=== PATIENT | female | born 1955 | race Caucasian/White ===

== ENCOUNTER 2021-08-11 09:11 | Outpatient (CLI) | payer MEDICARE | END 2021-08-11 09:12 | disposition home or self-care (01) | LOC: DTY/OP 09:11 | PROVIDERS: ATTEND Family Medicine | DX: E11.65 Type 2 diabetes mellitus with hyperglycemia (principal) | CPT/HCPCS: 97802 ==

== ENCOUNTER 2022-02-20 09:41 | Outpatient (CLI) | payer MEDICARE | END 2022-02-20 09:42 | disposition home or self-care (01) | LOC: LABBT 09:41 | PROVIDERS: ATTEND Family Medicine | DX: Z20.822 Contact with and (suspected) exposure to COVID-19 (principal) | CPT/HCPCS: 87811 ==

== ENCOUNTER 2022-02-24 08:29 | Day surgery (SDC) | payer MEDICARE, OTHER ==
[2022-02-22 14:10] VITALS: BMI 29.0
[2022-02-24 08:58] LABS: Prothrombin Time 12.7 sec (12.0-14.7)
[2022-02-24 08:59] LABS: PTT 34.3 sec (22.9-36.1)
[2022-02-24 10:17] VITALS: BP 146/84; TEMP 97.6
[2022-02-24] MEDS ORDERED: Iopamidol 370 76% 100 ML VIAL ONE (12:55)
== END 2022-02-24 11:30 | disposition home or self-care (01) ==
LOC: CT 08:29
PROVIDERS: ATTEND Urology
DX: N28.89 Other specified disorders of kidney and ureter (principal); N28.1 Cyst of kidney, acquired; K80.20 Calculus of gallbladder without cholecystitis without obstruction; Z79.1 Long term (current) use of non-steroidal anti-inflammatories (NSAID); Z79.84 Long term (current) use of oral hypoglycemic drugs; Z79.899 Other long term (current) drug therapy; Z88.5 Allergy status to narcotic agent
CPT/HCPCS: 36415; 74175; 76380; 85610; 85730

== ENCOUNTER 2023-03-06 12:27 | Outpatient (CLI) | payer OTHER | END 2023-03-06 12:28 | disposition home or self-care (01) | LOC: BICMRI 12:27 | PROVIDERS: ATTEND Neurological Surgery | DX: M54.12 Radiculopathy, cervical region (principal); M25.519 Pain in unspecified shoulder; N28.89 Other specified disorders of kidney and ureter | CPT/HCPCS: 71046; 72050; 72141 ==

== ENCOUNTER 2023-03-14 07:31 | Outpatient (CLI) | payer OTHER ==
[2023-03-14] MEDS ORDERED: Iopamidol 370 76% 100 ML VIAL ONE (09:31)
== END 2023-03-14 07:32 | disposition home or self-care (01) ==
LOC: CT 07:31
PROVIDERS: ATTEND Urology
DX: N28.89 Other specified disorders of kidney and ureter (principal); K76.0 Fatty (change of) liver, not elsewhere classified; K80.20 Calculus of gallbladder without cholecystitis without obstruction; N28.1 Cyst of kidney, acquired
CPT/HCPCS: 36415; 74177; 80048; 82565; Q9967

== ENCOUNTER 2023-03-22 11:00 | Outpatient (CLI) | payer OTHER | END 2023-03-22 11:01 | disposition home or self-care (01) | PROVIDERS: ATTEND Family Medicine | DX: E11.40 Type 2 diabetes mellitus with diabetic neuropathy, unspecified (principal) ==

== ENCOUNTER 2024-06-14 08:51 | Inpatient (IN) | payer OTHER ==
[2024-06-14 09:59] LABS: #Basophils 0.03 10x3/uL (0.0-0.2); %Basophils 0.3 % (0.0-1.0); %Lymphocytes 12.1 % (21.0-51.0); %Monocytes 7.7 % (0.0-10.0); %Neutrophils 78.4 % (42.0-75.0); Hemoglobin 13.8 g/dL (12.0-16.0); Mean Corpuscular HGB CONC 33.7 g/dL (32.0-36.0); Mean Corpuscular Hemoglobin 33.7 pg (27.0-31.0); Mean Corpuscular Volume 100.2 fL (78.0-98.0); Mean Platelet Volume 12.6 fL (7.4-10.4); Platelet Count 161 10x3/uL (130-400); RBC Distribution Width 12.6 % (11.5-14.5); Red Blood Cell (RBC) Count 4.09 mill/uL (4.20-5.40)
[2024-06-14 10:23] LABS: ALT (SGPT) 18 U/L (8-55); AST (SGOT) 25 U/L (5-34); Albumin 3.1 g/dL (3.4-4.8); Alkaline Phosphatase 93 U/L (40-110); Anion Gap 19 mmol/L (10-20); BUN (Urea Nitrogen) 9 mg/dL (9.8-20.1); Bilirubin, Total 0.9 mg/dL (0.2-1.2); Calc. Creatinine Clearance 0 mL/min (70-130); Carbon Dioxide 15 mmol/L (23-31); Chloride 109 mmol/L (98-107); Estimated GFR 88; Globulin 3.6 g/dL (2.4-3.5); Glucose 146 mg/dL (80-115); Potassium 4.6 mmol/L (3.5-5.1); Protein, Total 6.7 g/dL (5.8-8.1); Sodium 138 mmol/L (136-145)
[2024-06-14 10:46] LABS: Critical Call Chem Troponin I NUR.BH1; Troponin I 0.315 ng/mL (< 0.028)
[2024-06-14] MEDS ORDERED: Dextrose 5% in Water 1,000 ML IV PRN (10:47)
[2024-06-14] MEDS ORDERED: Dextrose 50% Abboject 50 ML SYRINGE SLOW IVP PRN (10:47)
[2024-06-14] MEDS ORDERED: Glucagon 1 MG/ML KIT IM PRN (10:47)
[2024-06-14] MEDS ORDERED: Sodium Chloride 0.9% 100 ML ONE (11:52)
[2024-06-14] MEDS ORDERED: cefTRIAXone (ROCEPHIN) 2 GM VIAL ONE (11:52)
[2024-06-14] MEDS ORDERED: Gabapentin 300 MG CAP ONE (11:56)
[2024-06-14] MEDS: cefTRIAXone\\ROCEPHIN 2 GM in Sodium Chloride 0.9% 100 ML IVPB SCH (12:01)
[2024-06-14] MEDS: Nicotine 21 MG PATCH TD SCH (12:06)
[2024-06-14] MEDS: Sodium Chloride 0.9% 1,000 ML IV SCH (12:37)
[2024-06-14 12:50] LABS: Lactic Acid 2.13 mmol/L (0.5-2.2)
[2024-06-14 12:55] LABS: Cardiac Risk 3.1 (Less than 4.5); Cholesterol 91 mg/dl (< 200 Desired); HDL Cholesterol 29 mg/dL (>60 Neg Risk); LDL Cholesterol, Calculated 46 mg/dL; Magnesium 1.3 mg/dL (1.6-2.6); Triglycerides 78 mg/dL (Less than 150)
[2024-06-14 13:11] LABS: Troponin I 0.387 ng/mL (< 0.028)
[2024-06-14 13:48] LABS: Hemoglobin A1c 7.8 % (4.0-6.0)
[2024-06-14 13:57] VITALS: BMI 32.0
[2024-06-14] MEDS: Magnesium 2 GM/50 ML(in water) 2 GM in Premix 1 BAG IVPB SCH (14:24)
[2024-06-14] MEDS: Acetaminophen 325 MG TAB PO PRN (18:49)
[2024-06-14 19:09] LABS: Lactic Acid 2.94 mmol/L (0.5-2.2)
[2024-06-14 19:24] LABS: Critical Call Chem Troponin I RESULT DECREASING; Troponin I 0.356 ng/mL (< 0.028)
[2024-06-14] MEDS: Famotidine/PF 20 mg/2ml Vial SLOW IVP SCH (20:25)
[2024-06-14] MEDS: Amitriptyline HCl 10 MG TAB PO SCH (20:25)
[2024-06-14] MEDS: Gabapentin 300 MG CAP PO SCH (20:25)
[2024-06-14] MEDS: Insulin Regular, Human 100 UNIT/ML 10 ML VIAL SC PRN (20:26)
[2024-06-14] MEDS: Simvastatin 5 MG TAB PO SCH (20:26)
[2024-06-15] MEDS ORDERED: Electrolyte Replacement Protocol 1 EACH FS SCH (00:30)
[2024-06-15 01:07] LABS: #Basophils 0.03 10x3/uL (0.0-0.2); #Eosinophils Less than 0.03 10x3/uL (0.0-0.7); %Basophils 0.3 % (0.0-1.0); %Eosinophils 0.2 % (0.0-10.0); %Lymphocytes 17.3 % (21.0-51.0); Hematocrit 39.4 % (36.0-47.0); Mean Corpuscular Hemoglobin 33.8 pg (27.0-31.0); Mean Corpuscular Volume 102.3 fL (78.0-98.0); Mean Platelet Volume 11.7 fL (7.4-10.4); Platelet Count 152 10x3/uL (130-400); RBC Distribution Width 12.5 % (11.5-14.5); Red Blood Cell (RBC) Count 3.85 mill/uL (4.20-5.40)
[2024-06-15] MEDS: Sodium Chloride 0.9% 500 ML IV SCH ×2 (01:11→03:30)
[2024-06-15 01:28] LABS: Anion Gap 14 mmol/L (10-20); BUN (Urea Nitrogen) 8 mg/dL (9.8-20.1); Calc. Creatinine Clearance 105 mL/min (70-130); Calcium 7.8 mg/dL (7.8-10.44); Carbon Dioxide 19 mmol/L (23-31); Chloride 108 mmol/L (98-107); Estimated GFR 90; Glucose 228 mg/dL (80-115); Magnesium 2.1 mg/dL (1.6-2.6); Sodium 137 mmol/L (136-145)
[2024-06-15] MEDS: Benzonatate 100 MG CAP PO PRN (01:32)
[2024-06-15] MEDS: traMADol HCl 50 MG TAB PO PRN (02:40)
[2024-06-15] MEDS: Piperacillin/Tazobactam 3.375 GM in Sodium Chloride 0.9% 100 ML IVPB SCH ×2 (03:25→05:31)
[2024-06-15 04:49] LABS: Lactic Acid 1.14 mmol/L (0.5-2.2)
[2024-06-15] MEDS: Ipratropium/Albuterol 3 ML NEB NEB PRN (05:36)
[2024-06-15] MEDS: Aspirin 81 mg Enteric Coated Tablet PO SCH (09:27)
[2024-06-15] MEDS: Enoxaparin 40 MG (0.4 mL) SYRINGE SC SCH (09:27)
[2024-06-15] MEDS: GUAIFENESIN SF SOLN 200 MG/10 ML UDCUP PO PRN (09:28)
[2024-06-15] MEDS: methylPREDNISolone Sod Succ/PF 125 MG/2 ML VIAL IVP SCH (11:09)
[2024-06-15] MEDS: Ondansetron PF 4 MG/2 ML Vial IVP PRN (11:23)
[2024-06-15] MEDS: Insulin Lispro 100 UNIT/ML 10 ML VIAL SC PRN (11:24)
[2024-06-15] MEDS: Ipratropium/Albuterol 3 ML NEB NEB SCH (13:19)
[2024-06-15] MEDS: methylPREDNISolone Sod Succ 40 MG VIAL IVP SCH (15:56)
[2024-06-16 05:14] LABS: #Basophils Less than 0.03 10x3/uL (0.0-0.2); #Eosinophils Less than 0.03 10x3/uL (0.0-0.7); %Basophils 0.1 % (0.0-1.0); %Lymphocytes 8.5 % (21.0-51.0); %Monocytes 7.9 % (0.0-10.0); %Neutrophils 83.1 % (42.0-75.0); Hematocrit 37.1 % (36.0-47.0); Hemoglobin 12.6 g/dL (12.0-16.0); Mean Corpuscular Hemoglobin 33.2 pg (27.0-31.0); Mean Corpuscular Volume 97.6 fL (78.0-98.0); Mean Platelet Volume 11.9 fL (7.4-10.4); Platelet Count 163 10x3/uL (130-400); RBC Distribution Width 12.6 % (11.5-14.5)
[2024-06-16 05:30] LABS: Anion Gap 12 mmol/L (10-20); BUN (Urea Nitrogen) 11 mg/dL (9.8-20.1); Calc. Creatinine Clearance 109 mL/min (70-130); Calcium 7.8 mg/dL (7.8-10.44); Carbon Dioxide 19 mmol/L (23-31); Chloride 110 mmol/L (98-107); Estimated GFR 94; Glucose 316 mg/dL (80-115); Potassium 3.3 mmol/L (3.5-5.1); Sodium 138 mmol/L (136-145)
[2024-06-16] MEDS: Potassium Chloride 20 MEQ TAB PO SCH (09:59)
[2024-06-16] MEDS ORDERED: tiZANidine HCl 4 MG TAB PO PRN (16:56)
[2024-06-16] MEDS: Cilostazol 100 MG TAB PO SCH (20:19)
[2024-06-17 05:01] LABS: ALT (SGPT) 22 U/L (8-55); AST (SGOT) 44 U/L (5-34); Albumin 2.6 g/dL (3.4-4.8); Alkaline Phosphatase 77 U/L (40-110); Anion Gap 12 mmol/L (10-20); BUN (Urea Nitrogen) 9 mg/dL (9.8-20.1); Bilirubin, Total 0.6 mg/dL (0.2-1.2); Calc. Creatinine Clearance 106 mL/min (70-130); Calcium 7.8 mg/dL (7.8-10.44); Carbon Dioxide 19 mmol/L (23-31); Chloride 111 mmol/L (98-107); Estimated GFR 92; Globulin 3.7 g/dL (2.4-3.5); Glucose 159 mg/dL (80-115); Potassium 3.8 mmol/L (3.5-5.1); Protein, Total 6.3 g/dL (5.8-8.1); Sodium 138 mmol/L (136-145)
[2024-06-17 05:16] LABS: Base Excess (BEa) -2.9 mEq/L (-2.0 to +3.0); CO2 Tension 29.6 mmHg (35.0-45.0); Calcium, Ionized (arterial) 1.08 mmol/L (1.12-1.30); Carboxyhemoglobin (COHb) 0.8 gm% (0.0-3.0); Hematocrit-ABG 38 % (36.0-47.0); Hemoglobin (Hb) 12.8 g/dL (12.0-16.0); Potassium - ABG Lab 3.25 mmol/L (3.70-5.30); pH, Arterial 7.448 (7.35-7.45)
[2024-06-17 05:17] LABS: O2 Tension (PaO2), arterial 52.9 mmHg (> 80.0)
[2024-06-17 05:18] LABS: Puncture Site RR
[2024-06-17] MEDS: Furosemide 20 MG (2 mL) VIAL SLOW IVP SCH (06:05)
[2024-06-17 07:02] LABS: #Basophils Less than 0.03 10x3/uL (0.0-0.2); #Eosinophils Less than 0.03 10x3/uL (0.0-0.7); %Basophils 0.1 % (0.0-1.0); %Monocytes 12.3 % (0.0-10.0); Hematocrit 36.9 % (36.0-47.0); Hemoglobin 12.6 g/dL (12.0-16.0); Mean Corpuscular HGB CONC 34.1 g/dL (32.0-36.0); Mean Corpuscular Hemoglobin 33.2 pg (27.0-31.0); Mean Corpuscular Volume 97.4 fL (78.0-98.0); Mean Platelet Volume 11.6 fL (7.4-10.4); Platelet Count 208 10x3/uL (130-400); RBC Distribution Width 12.8 % (11.5-14.5); Red Blood Cell (RBC) Count 3.79 mill/uL (4.20-5.40)
[2024-06-17] MEDS: metFORMIN 500 MG TAB PO SCH (08:05)
[2024-06-17] MEDS: Insulin Glargine 30 UNITS/0.3 ML VIAL SC SCH (08:06)
[2024-06-17] MEDS: Pantoprazole DR 40 MG TAB PO SCH (08:06)
[2024-06-17] MEDS: Furosemide 40 MG (4 mL) VIAL SLOW IVP SCH (11:21)
[2024-06-18 04:20] LABS: #Basophils Less than 0.03 10x3/uL (0.0-0.2); #Eosinophils Less than 0.03 10x3/uL (0.0-0.7); %Basophils 0.1 % (0.0-1.0); %Eosinophils 0.1 % (0.0-10.0); %Lymphocytes 21.9 % (21.0-51.0); %Monocytes 16.8 % (0.0-10.0); %Neutrophils 60.5 % (42.0-75.0); Hematocrit 31.9 % (36.0-47.0); Hemoglobin 11.1 g/dL (12.0-16.0); Mean Corpuscular HGB CONC 34.8 g/dL (32.0-36.0); Mean Corpuscular Hemoglobin 33.5 pg (27.0-31.0); Mean Corpuscular Volume 96.4 fL (78.0-98.0); Mean Platelet Volume 11.6 fL (7.4-10.4); Platelet Count 197 10x3/uL (130-400); RBC Distribution Width 12.5 % (11.5-14.5); Red Blood Cell (RBC) Count 3.31 mill/uL (4.20-5.40)
[2024-06-18 04:37] LABS: Anion Gap 12 mmol/L (10-20); BUN (Urea Nitrogen) 6 mg/dL (9.8-20.1); Calc. Creatinine Clearance 117 mL/min (70-130); Calcium 7.6 mg/dL (7.8-10.44); Carbon Dioxide 23 mmol/L (23-31); Chloride 104 mmol/L (98-107); Estimated GFR 96; Glucose 152 mg/dL (80-115); Potassium 2.7 mmol/L (3.5-5.1); Sodium 136 mmol/L (136-145)
[2024-06-18] MEDS: LevoFLOXacin 500 MG TAB PO SCH (07:00)
[2024-06-18] MEDS: Furosemide 40 MG (4 mL) VIAL SLOW IVP SCH (07:00)
[2024-06-18] MEDS: Potassium Chloride 20 MEQ TAB PO SCH (08:29)
[2024-06-19 05:08] LABS: #Basophils 0.04 10x3/uL (0.0-0.2); %Basophils 0.4 % (0.0-1.0); %Eosinophils 1.2 % (0.0-10.0); %Lymphocytes 20.7 % (21.0-51.0); %Monocytes 13.7 % (0.0-10.0); Hematocrit 32.6 % (36.0-47.0); Hemoglobin 11.3 g/dL (12.0-16.0); Mean Corpuscular HGB CONC 34.7 g/dL (32.0-36.0); Mean Corpuscular Volume 95.3 fL (78.0-98.0); Mean Platelet Volume 11.8 fL (7.4-10.4); Platelet Count 229 10x3/uL (130-400); RBC Distribution Width 12.5 % (11.5-14.5); Red Blood Cell (RBC) Count 3.42 mill/uL (4.20-5.40)
[2024-06-19 05:25] LABS: Anion Gap 12 mmol/L (10-20); BUN (Urea Nitrogen) 6 mg/dL (9.8-20.1); Calc. Creatinine Clearance 117 mL/min (70-130); Calcium 7.7 mg/dL (7.8-10.44); Carbon Dioxide 23 mmol/L (23-31); Chloride 104 mmol/L (98-107); Estimated GFR 96; Glucose 224 mg/dL (80-115); Potassium 3.3 mmol/L (3.5-5.1); Sodium 136 mmol/L (136-145)
[2024-06-19] MEDS: Potassium Chloride 20 MEQ TAB PO SCH (07:36)
[2024-06-19 16:25] VITALS: BP 133/66; TEMP 98.4
== END 2024-06-19 17:09 | disposition home health service (06) | DRG 871 ==
LOC: ERS 08:51 → ERHOLD 10:13 → 2NO 13:16
PROVIDERS: ADMIT Hospitalist; ATTEND Internal Medicine
PROC: 4A033R1 Measurement of Arterial Saturation, Peripheral, Percutaneous Approach (ICD-10-PCS; principal; 2024-06-17)
DX: A41.51 Sepsis due to Escherichia coli [E. coli] (principal); J96.01 Acute respiratory failure with hypoxia; N39.0 Urinary tract infection, site not specified; I50.32 Chronic diastolic (congestive) heart failure; I24.89 Other forms of acute ischemic heart disease; J40 Bronchitis, not specified as acute or chronic; E11.65 Type 2 diabetes mellitus with hyperglycemia; K21.9 Gastro-esophageal reflux disease without esophagitis; M19.90 Unspecified osteoarthritis, unspecified site; E11.42 Type 2 diabetes mellitus with diabetic polyneuropathy; E78.5 Hyperlipidemia, unspecified; F17.210 Nicotine dependence, cigarettes, uncomplicated; I11.0 Hypertensive heart disease with heart failure; Z90.49 Acquired absence of other specified parts of digestive tract; Z98.891 History of uterine scar from previous surgery; Z88.5 Allergy status to narcotic agent; Z79.899 Other long term (current) drug therapy; Z79.84 Long term (current) use of oral hypoglycemic drugs; Z79.85 Long-term (current) use of injectable non-insulin antidiabetic drugs; Z79.4 Long term (current) use of insulin
CPT/HCPCS: 36415; 36416; 71045; 71275; 74177; 80048; 80053; 80061; 81001; 82805; 83036; 83605; 83690; 83735; 83880; 84484; 85025; 87040; 87077; 87086; 87149; 87186; 87428; 93005; 93010; 93306; 94640; 96360; 96361; J0696; J1650; J1815; J1940; J2405; J2543; J2919; J3475; J3490; J7030; J7620; Q9967

== ENCOUNTER 2025-03-06 10:23 | Outpatient (CLI) | payer OTHER | END 2025-03-06 10:24 | disposition home or self-care (01) | LOC: BICCT 10:23 | PROVIDERS: ATTEND Family Medicine | DX: J44.9 Chronic obstructive pulmonary disease, unspecified (principal); R91.1 Solitary pulmonary nodule | CPT/HCPCS: 71046; 71250 ==